=== PATIENT | male | born 1985 | race Caucasian/White ===

== ENCOUNTER 2018-08-02 18:11 | Emergency (ER) | payer OTHER ==
[~2018-08-02] VITALS: Ht 182.9 cm; Wt 81.6 kg
[2018-08-02] MEDS ORDERED: BENZTROPINE ME0.5 MG PO (18:19)
[2018-08-02] MEDS ORDERED: RISPERDAL1 MG PO (18:19)
--- NOTE | 2018-08-02 18:26 | NUR ---
ED Nurse Note: Pt came into the ER w/c complaints of abcess on bilateral arms x 2 weeks. Redness, inflammation, and tenderness noted on the area. 1 abcess on each arm. Blanchable redness. A + O x4. AMbulatory. Skin warm to touch. Denies any pain. Pt states that it started 2 weeks ago after injecting methamphetamine.
[2018-08-02 18:29] VITALS: BP 135/80
[2018-08-02] MEDS ORDERED: Acetaminophen 500mg (ES) tab ORAL ONE (18:30)
[2018-08-02] MEDS ORDERED: Lidocaine 1% 10mg/ml/Epi 0.005mg/ml 30ml vial INJ ONE (18:30)
[2018-08-02] MEDS ORDERED: Tetanus/Diptheria/Pertussis Vaccine 0.5ml Syr IM ONE (18:30)
--- NOTE | 2018-08-02 18:33 | Emergency Room Report ---
History of Present Illness General Chief Complaint: Skin Rash/Abscess Source: Patient Present Illness HPI 32-year-old male patient presents the ER complaining of bilateral abscess on his forearms for the past "week or 2". 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 Reports has not used meth for the past 5 days. Denies drainage. Denies fever, chest pain, shortness of breath, vomiting. Denies history of diabetes. States is unsure of tetanus vaccination status. Reports hx of abscess however states has never "had to have them drained" previously, was treated with Bactrim at that time. Allergies: Coded Allergies: No Known Allergies (Unverified , 08/02/18) Patient History Past Medical History: see triage record Reviewed Nursing Documentation: PSxH: Agreed Nursing Documentation-PMH Past Medical History: No History, Except For History Of Psychiatric Problem: Yes - bipolar, depression Review of Systems All Other Systems: negative except mentioned in HPI Physical Exam Vital Signs Date Time Temp Pulse Resp B/P (MAP) Pulse Ox O2 Delivery O2 Flow Rate FiO2 08/02/18 18:14 97.7 91 18 133/83 99 Room Air Sp02 EP Interpretation: reviewed, normal General Appearance: well appearing, no apparent distress, alert, GCS 15, non- toxic Head: normocephalic, atraumatic Eyes: bilateral eye normal inspection, bilateral eye PERRL Neck: full range of motion Respiratory: lungs clear, normal breath sounds, no rhonchi, no respiratory distress, no accessory muscle use, no wheezing, speaking full sentences Cardiovascular #1: regular rate, rhythm, no edema Cardiovascular #2: 2+ radial (R), 2+ radial (L) Musculoskeletal: back normal, digits/nails normal, gait/station normal, normal range of motion, non-tender Neurologic: alert, oriented x3, responsive, motor strength/tone normal, sensory intact Skin: other - 2 cm x 4 cm fluctuant abscess on the left mid forearm, no surrounding erythema or edema, no drainage; 2 cm circular area of erythema on right forearm consistent with cellulitis, no surrounding erythema or edema, no palpable mass, no fluctuance or induration Procedures Incision and Drainage Incision and Drainage : Consent: Verbal Site: left forearm Blade Size: 11 I & D Procedure: betadine prep, sterile drapes applied, sterile dressing applied, gauze wick placed Wound Location: upper extremity Wound's Depth, Shape: superficial Wound Length (cm): 4 Wound Explored: contaminated Irrigated w/ Saline (ccs): 10 Anesthesia: Lidocaine w/ Epi Volume Anesthetic (ccs): 2 Splint Applied?: No Sling Applied?: No Patient Tolerated: Well Complications: None Medical Decision Making PA Attestation Dr. Castro is my supervising Physician whom patient management has been discussed with. Diagnostic Impression: Primary Impression: Abscess Additional Impression: Cellulitis ER Course Pt. presents to the ED c/o bilateral forearm abscess. Ddx considered but are not limited to rash, cellulitis, abscess, sebaceous cyst , carbuncle, folliculitis. Does not require imaging at this time. Vital signs: are WNL, pt. is afebrile ED INTERVENTIONS: On physical exam left forearm shows obvious abscess, will perform I&D procedure. On right forearm, shows no palpable mass consistent with abscess, likely cellulitis. Will treat patient with outpatient oral antibiotics. TDAP and pain medication provided. Local block of abscess performed with lidocaine with epi. Pus drained. I&D of abscess performed. See procedure note. Wound packed with iodoform gauze packing. Sterile dressing applied to wound following procedure. Wound check in 2 days for iodoform packing change. ER precautions given. DISCHARGE: -Rx provided for Keflex -Rx provided for Bactrim -Rx provided for Ibuprofen At this time pt. is stable for d/c to home. Patient is resting comfortably, in no acute distress, nontoxic appearing. Will provide printed patient care instructions and any necessary prescriptions. Care plan and follow up instructions have been discussed with the patient prior to discharge. Patient instructed to follow-up with primary care provider in 2 - 3 days for wound recheck. Patient questions asked and answered. Patient reports understanding and agreement to treatment plan. ER precautions given. Patient instructed to return to ER immediately for any new or worsening of symptoms including but not limited to fever, worsening of pain symptoms, worsening of erythema, red streaking. - Please note that this Emergency Department Report was dictated using [employer] admiral technology software, occasionally this can lead to erroneous entry secondary to interpretation by the dictation equipment. Last Vital Signs Date Time Temp Pulse Resp B/P (MAP) Pulse Ox O2 Delivery O2 Flow Rate FiO2 08/02/18 18:14 97.7 91 18 133/83 99 Room Air Status: improved Disposition: HOME, SELF-CARE Condition: Stable Scripts Trimethoprim/Sulfamethoxazole 160/800* (BACTRIM DS TABLET*) 1 Each Tablet 1 TAB ORAL TWICE A DAY for 7 Days, #14 TAB Prov: Fabrizio Andrews 08/02/18 Acetaminophen* (TYLENOL EXTRA STRENGTH*) 500 Mg Tablet 500 MG ORAL Q8H PRN for Prn Headache/Temp > 101, #30 TAB 0 Refills Prov: Fabrizio Andrews 08/02/18 Cephalexin* (KEFLEX*) 500 Mg Capsule 500 MG ORAL EVERY 12 HOURS, #14 CAP 0 Refills Prov: Fabrizio Andrews 08/02/18 Patient Instructions: Abscess, Cellulitis, [id number] Additional Instructions: Followup with PCP in 2 days for wound check and iodoform gauze removal and replacement as needed. Take medications as instructed. Patient questions asked and answered. Apply warm compresses to affected area. Keep wound clean and dry. ER precautions given. Return to ER for new or worsening of symptoms including but not limited to chest pain, SOB, red streaking, worsening of abscess, intractible vomiting. Fabrizio Andrews Aug 02, 2018 18:33
--- NOTE | 2018-08-02 19:04 | NUR ---
ED Nurse Note: Garth PARADA at the bedside draining the left forearm abcess.
[2018-08-02] MEDS ORDERED: TYLENOL EXTRA500 MG ORAL (19:08)
[2018-08-02] MEDS ORDERED: CEPHALEXIN500 MG ORAL (19:08)
[2018-08-02] MEDS ORDERED: BACTRIM DS TAB1 EAC1 ORAL (19:08)
--- NOTE | 2018-08-02 19:08 | NUR ---
ED Nurse Note: Pt's abcess drainage site has been covered w/ gauze.
[2018-08-02 19:14] VITALS: BP 130/74
--- NOTE | 2018-08-02 19:14 | NUR ---
ED Nurse Note: Discharge instructions given to pt. Answered all questions. Verbalized understanding. A + O x4. No acute distress noted. ID band removed. Left ER w/ steady gait and all belongings.
== END 2018-08-02 19:15 | disposition home or self-care (01) ==
LOC: EMR 18:26
DX: L02.414 Cutaneous abscess of left upper limb (principal); L03.113 Cellulitis of right upper limb; L02.413 Cutaneous abscess of right upper limb; L03.114 Cellulitis of left upper limb; F15.90 Other stimulant use, unspecified, uncomplicated; F31.9 Bipolar disorder, unspecified; F17.200 Nicotine dependence, unspecified, uncomplicated; Z23 Encounter for immunization
CPT/HCPCS: 10060; 90471; 90715; 99283; Z7502

== ENCOUNTER 2018-08-04 18:05 | Emergency (ER) | payer OTHER ==
[~2018-08-04] VITALS: Ht 185.4 cm; Wt 83.9 kg
[~2018-08-04 18:05] MED LIST: BACTRIM DS TAB1 EAC1 ORAL; BENZTROPINE ME0.5 MG PO; CEPHALEXIN500 MG ORAL; RISPERDAL1 MG PO; TYLENOL EXTRA500 MG ORAL
--- NOTE | 2018-08-04 18:14 | NUR ---
not in wr
--- NOTE | 2018-08-04 19:11 | Emergency Room Report ---
History of Present Illness General Chief Complaint: Wound Recheck/Suture Removal Source: Patient Present Illness HPI 32-year-old male patient presents the ER for wound check of abscess on left arm. Patient was previously seen in the ER 2 days ago by this provider for abscess drainage on left forearm. Reports feeling well. States has been keeping clean dry. States has been taking antibiotics. Denies fever, chest pain, shortness of breath, abdominal pain, vomiting. Reports iodoform gauze was placed. Denies other aggravating or relieving factors. Allergies: Coded Allergies: No Known Allergies (Unverified , 08/02/18) Patient History Past Medical History: see triage record Reviewed Nursing Documentation: PMH: Agreed; PSxH: Agreed Nursing Documentation-PMH Past Medical History: No History, Except For Review of Systems All Other Systems: negative except mentioned in HPI Physical Exam Vital Signs Date Time Temp Pulse Resp B/P (MAP) Pulse Ox O2 Delivery O2 Flow Rate FiO2 08/04/18 18:28 97.5 75 18 106/69 98 Room Air Sp02 EP Interpretation: reviewed, normal General Appearance: well appearing, no apparent distress, alert, GCS 15, non- toxic Head: normocephalic, atraumatic Eyes: bilateral eye normal inspection, bilateral eye PERRL ENT: hearing grossly normal, normal pharynx, no angioedema, normal voice, uvula midline, moist mucus membranes Neck: full range of motion Respiratory: lungs clear, normal breath sounds, no rhonchi, no respiratory distress, no accessory muscle use, no wheezing, speaking full sentences Cardiovascular #1: regular rate, rhythm, no edema Cardiovascular #2: 2+ radial (R), 2+ radial (L) Psychiatric: mood/affect normal Skin: other - Healing abscess on left forearm, iodoform gauze placed, mild surrounding erythema and edema Medical Decision Making PA Attestation Dr. Ivy is my supervising Physician whom patient management has been discussed with. Diagnostic Impression: Primary Impression: Encounter for wound re-check ER Course Pt. presents to the ED requesting wound check of abscess on left forearm. Ddx considered but are not limited to wound check, cellulitis, abscess. Vital signs: are WNL, pt. is afebrile ER COURSE: Wound appears to be healing well, improved from previous visit, still mild erythema and edema noted. Removed iodoform gauze and replaced to keep wound open and allow to drain. Return to ER in 2-3 days for wound check. Keep clean and dry. Seen and evaluated by Dr. Ivy, agrees with assessment treatment plan. ER precautions given. DISCHARGE: Patient instructed to continue with medications per initial ER provider instructions. At this time pt. is stable for d/c to home. Patient resting comfortably, in no acute distress, nontoxic appearing. Will provide printed patient care instructions and any necessary prescriptions. Care plan and follow up instructions have been discussed with the patient prior to discharge. Patient instructed to follow-up with primary care provider for further treatment and referral. Patient questions asked and answered. ER precautions given. Patient instructed to return to ER immediately for any new or worsening of symptoms including but not limited to fever, worsening of pain symptoms. - Please note that this Emergency Department Report was dictated using [employer]ark[employer] engineer technology software, occasionally this can lead to erroneous entry secondary to interpretation by the dictation equipment. Last Vital Signs Date Time Temp Pulse Resp B/P (MAP) Pulse Ox O2 Delivery O2 Flow Rate FiO2 08/04/18 18:28 97.5 75 18 106/69 98 Room Air Status: improved Disposition: HOME, SELF-CARE Condition: Stable Patient Instructions: Wound Check Additional Instructions: Followup with primary care provider or return to ER in 2-3 days for wound check. Keep arm elevated. Take medications as directed. Take Tylenol for pain symptoms. Patient questions asked and answered. ER precautions given, patient instructed to return to ER immediately for any new or worsening of symptoms. Fabrizio Andrews Aug 04, 2018 19:11
[2018-08-04 19:20] VITALS: BP 106/69
--- NOTE | 2018-08-04 19:30 | NUR ---
ED Nurse Note: pt came in due to wound recheck, denies pain. will continue to monitor
[2018-08-04 19:35] VITALS: BP 106/69
--- NOTE | 2018-08-04 19:35 | NUR ---
ED Nurse Note: pt wound recheched, bandage replaced. pt denies any pain. pt was cleared for discharge by ermd. prescription and discharge instruction explained and pt able to verbalize understanding. id band removed. pt able to walk with steady gait. pt left the ed with all belongings.
== END 2018-08-04 19:35 | disposition home or self-care (01) ==
LOC: EMR 18:50
DX: Z48.00 Encounter for change or removal of nonsurgical wound dressing (principal)
CPT/HCPCS: 99281